=== PATIENT | female | born 1965 | race Caucasian/White ===

== ENCOUNTER 2018-08-27 08:30 | Emergency (ER) | payer BC ==
[~2018-08-27] VITALS: Ht 157.5 cm; Wt 75.0 kg
[~2018-08-27 08:30] MED LIST: NORCO 325 MG-51 TAB PO; ZOFRAN 4MG T4 MG/TAB PO
[2018-08-27 08:34] VITALS: BP 171/85; TEMP 97.5
[2018-08-27] MEDS ORDERED: ZOFRAN ODT4 MG PO (09:12)
[2018-08-27] MEDS ORDERED: NORCO 325 MG-51 TAB PO (09:12)
[2018-08-27 09:56] VITALS: PULSE 78
== END 2018-08-27 09:57 | disposition home or self-care (01) ==
LOC: COL.ER 08:30
DX: S52.101A Unspecified fracture of upper end of right radius, initial encounter for closed fracture (principal); F17.210 Nicotine dependence, cigarettes, uncomplicated; W19.XXXA Unspecified fall, initial encounter; Y92.009 Unspecified place in unspecified non-institutional (private) residence as the place of occurrence of the external cause; Y93.51 Activity, roller skating (inline) and skateboarding
CPT/HCPCS: Q4050

== ENCOUNTER → 2018-11-27 | Outpatient (CLI) | payer BC ==
[~2018-11-27] MED LIST changes: +ZOFRAN ODT4 MG PO
== END ==
LOC: COL.RAD 11-24 07:30
DX: M48.02 Spinal stenosis, cervical region (principal); M43.12 Spondylolisthesis, cervical region; M47.22 Other spondylosis with radiculopathy, cervical region

== ENCOUNTER → 2018-12-08 | Outpatient (CLI) | payer BC ==
[~2018-12-08] VITALS: Ht 157.5 cm; Wt 68.8 kg
[2018-12-08 11:56] VITALS: BP 173/112; PULSE 86
[2018-12-08 13:33] VITALS: BP 152/70; PULSE 84
--- NOTE | 2018-12-08 13:47 | NUR ---
WENT OVER THE DC INSTRUCTIOSN AGAIN BEFORE WE LWFT THE RAD HOLDING AREA. PT HAD NO QUESTIONS. PT TAKEN TO POV IN WHEELCHAIR
== END ==
LOC: COL.RAD 12-06 13:30
DX: M50.20 Other cervical disc displacement, unspecified cervical region (principal)
CPT/HCPCS: J1100; Q9965

== ENCOUNTER → 2018-12-28 | Outpatient (CLI) | payer BC | LOC: COL.RAD 12-27 10:00 | DX: R93.89 Abnormal findings on diagnostic imaging of other specified body structures (principal) ==

== ENCOUNTER 2024-04-28 19:05 | Emergency (ER) | payer BC ==
[~2024-04-28] VITALS: Ht 157.5 cm; Wt 61.4 kg
[2024-04-28 19:05] VITALS: TEMP 97.7
[2024-04-28] MEDS ORDERED: Ondansetron 4 MG/2 ML VIAL IV ONE (19:15)
[2024-04-28] MEDS ORDERED: Morphine 4 MG/ML VIAL IV ONE (19:15)
[2024-04-28] MEDS ORDERED: NS 1,000 ML IV ONE (19:15)
[2024-04-28 19:33] LABS: BASO # 0.1 K/mm3 (0.0-0.2); EOS # 0.3 K/mm3 (0.0-0.7); EOS % 3.3 % (0.0-4.0); GRAN # 4.2 K/mm3 (1.4-6.5); GRAN % 54.3 % (42.2-75.2); HEMATOCRIT 42.1 % (37.0-47.0); HEMOGLOBIN 14.6 g/dl (12.5-16.0); LYMPH # 2.7 K/mm3 (1.2-3.4); MEAN CELL VOLUME 91 fl (80.0-100.0); MEAN CORPUSCULAR HEMOGLOBIN 32 pg (27-31); MEAN CORPUSCULAR HGB CONC 35 g/dl (33.0-37.0); MEAN PLATELET VOLUME 10.2 fl (7.4-10.4); MONO # 0.5 K/mm3 (0.1-0.6); MONO % 5.9 % (1.7-9.3); PLATELET COUNT 259 K/mm3 (130-400); RED BLOOD COUNT 4.61 M/mm3 (4.10-5.30); REDCELL DISTRIBUTION WIDTH-CV 12.3 % (11.5-14.5)
[2024-04-28 19:56] LABS: CALCIUM 9.1 mg/dL (8.4-10.2); CREATININE, serum 0.74 mg/dL (0.57-1.11); POTASSIUM 3.5 mEq/L (3.5-4.5)
[2024-04-28 20:12] LABS: BILIRUBIN,TOTAL 0.3 mg/dL (0.2-1.2)
[2024-04-28 22:15] VITALS: BP 133/86; PULSE 89
== END 2024-04-28 22:15 | disposition home or self-care (01) ==
LOC: COL.ER 19:05
PROVIDERS: Emergency Medicine
DX: S00.83XA Contusion of other part of head, initial encounter (principal); Y04.8XXA Assault by other bodily force, initial encounter
CPT/HCPCS: J2270; J2405; J7030